=== PATIENT | female | born 1990 | race Caucasian/White ===

== ENCOUNTER 2024-03-17 07:06 | Inpatient (IN) | payer MEDICAID ==
[~2024-03-17 07:06] MED LIST: Bupivacaine 0.25% 10 ML SDV ONE
[2024-03-17] MEDS ORDERED: Nalbuphine 10 MG/1 ML Vial IVPUSH PRN (07:23)
[2024-03-17] MEDS ORDERED: Lidocaine 1% 50 ML MDV INJECT PRN (07:23)
[2024-03-17] MEDS ORDERED: Calcium Carbonate 500 MG Tab.Chew PO PRN (07:23)
[2024-03-17] MEDS ORDERED: Oxytocin/0.9 % Sodium Chloride 30 UNIT/500 ML BAG IV SCH (07:30)
[2024-03-17 08:11] LABS: BASOPHILS PERCENT AUTO 0.3 % (0.0-1.0); EOSINOPHILS ABSOLUTE AUTO 0.1 K/mm3 (0.0-0.4); EOSINOPHILS PERCENT AUTO 0.7 % (0.0-6.0); HEMATOCRIT 30.6 % (37.0-47.0); IMMATURE GRAN ABSOLUTE AUTO 0.06 K/mm3 (0.00-0.05); IMMATURE GRAN PERCENT AUTO 0.7 % (0.0-0.4); LYMPHOCYTES ABSOLUTE AUTO 2.2 K/mm3 (1.0-4.8); MEAN CORPUSCULAR HEMOGLOBIN 27.2 pg (28.0-32.0); MEAN CORPUSCULAR HGB CONC 32.7 g/dl (32.0-36.0); MEAN CORPUSCULAR VOLUME 83.4 fl (83.0-99.0); MEAN PLATELET VOLUME 11.9 fl (9.4-12.3); MONOCYTES ABSOLUTE AUTO 0.8 K/mm3 (0.0-0.8); NEUTROPHILS ABSOLUTE AUTO 5.5 K/mm3 (1.8-7.7); NEUTROPHILS PERCENT AUTO 64.3 % (41.0-71.0); PLATELET COUNT,PLT 172 K/mm3 (150-400); RED BLOOD CELL COUNT 3.67 M/mm3 (4.10-5.30); WHITE BLOOD CELL COUNT,WBC 8.59 K/mm3 (3.9-11.3)
[2024-03-17 08:30] LABS: CREATININE 0.7 mg/dL (0.55-1.02); EST CRCL DRUG DOSING (CG) 108.01 mL/min; URIC ACID 5.5 mg/dL (2.6-6.0)
[2024-03-17] MEDS: Lactated Ringers 1,000 ML IV SCH (10:08)
[2024-03-17] MEDS: Oxytocin/0.9 % Sodium Chloride 30 UNIT/500 ML BAG IV SCH (10:10)
[2024-03-17 10:17] LABS: CREATININE,URINE RAND 204.5 mg/dL (30.0-125.0); PROTEIN CREATININE RATIO,URINE 176.5 mg/g (0-149); PROTEIN,URINE RANDOM 36.1 mg/dL (0.0-11.8)
[2024-03-17] MEDS ORDERED: diphenhydrAMINE 50 MG/ML SDV IVPUSH PRN (15:27)
[2024-03-17] MEDS ORDERED: ePHEDrine 50 MG/ML SDV IVPUSH PRN (15:27)
[2024-03-17] MEDS: fentaNYL 100 MCG/2 ML SDV EPIDUR PRN (15:47)
[2024-03-17] MEDS: Bupivacaine/fentaNYL/NS 100 ML Bag EPIDUR PRN (15:48)
[2024-03-17] MEDS: Ondansetron 4 MG/2 ML SDV IVPUSH PRN (21:29)
[2024-03-17] MEDS ORDERED: Bisacodyl 10 MG Supp RECTAL PRN (23:22)
[2024-03-17] MEDS ORDERED: Magnesium Hydroxide 400 MG/5 ML Susp 30 ML Cup PO PRN (23:22)
[2024-03-17] MEDS ORDERED: Simethicone 80 MG Tab.Chew PO PRN (23:22)
[2024-03-17] MEDS ORDERED: Sennosides 8.6 MG Tab PO PRN (23:22)
[2024-03-18] MEDS: Ibuprofen 800 MG Tab PO SCH ×3 (01:34→18:07)
[2024-03-18] MEDS: Witch Hazel Medicated Pads 40/Jar TOP PRN (06:44)
[2024-03-18] MEDS: Benzocaine/Menthol 20%-0.5% Spray 78 GM Cannister TOP PRN (06:44)
[2024-03-18] MEDS: Ferrous Sulfate 324 MG Tab.EC PO SCH (06:53)
[2024-03-18] MEDS: Docusate Sodium 100 MG Cap PO PRN (06:53)
[2024-03-18] MEDS: Acetaminophen 325 MG Tab PO PRN (06:53)
== END 2024-03-19 11:00 | disposition home or self-care (01) | DRG 807 ==
LOC: JD.OBCHECK 07:06 → JD.OB 07:11 → JD.OBCHECK 07:12 → OBSVTOIN 22:49 → JD.OB 22:50
PROVIDERS: ADMIT Obstetrics & Gynecology; ATTEND Obstetrics & Gynecology
PROC: 10E0XZZ Delivery of Products of Conception, External Approach (ICD-10-PCS; principal; 2024-03-17)
PROC: 10907ZC Drainage of Amniotic Fluid, Therapeutic from Products of Conception, Via Natural or Artificial Opening (ICD-10-PCS; 2024-03-17)
PROC: 3E033VJ Introduction of Other Hormone into Peripheral Vein, Percutaneous Approach (ICD-10-PCS; 2024-03-17)
PROC: 3E0P7VZ Introduction of Hormone into Female Reproductive, Via Natural or Artificial Opening (ICD-10-PCS; 2024-03-17)
PROC: 0HQ9XZZ Repair Perineum Skin, External Approach (ICD-10-PCS; 2024-03-17)
PROC: 3E0R3BZ Introduction of Anesthetic Agent into Spinal Canal, Percutaneous Approach (ICD-10-PCS; 2024-03-17)
PROC: 00HU33Z Insertion of Infusion Device into Spinal Canal, Percutaneous Approach (ICD-10-PCS; 2024-03-17)
DX: O13.4 Gestational [pregnancy-induced] hypertension without significant proteinuria, complicating childbirth (principal); Z37.0 Single live birth; O70.0 First degree perineal laceration during delivery; O69.81X0 Labor and delivery complicated by cord around neck, without compression, not applicable or unspecified; O76 Abnormality in fetal heart rate and rhythm complicating labor and delivery; Z3A.39 39 weeks gestation of pregnancy; Z91.018 Allergy to other foods
CPT/HCPCS: 36415; 51702; 59025; 59409; 82565; 82570; 83615; 84156; 84450; 84460; 84520; 84550; 85025; 86592; 86850; 86900; 86901; A9270-GY; J0665; J2405; J3010; J3490; J7120; J7999

== ENCOUNTER 2024-05-01 11:35 | Emergency (ER) | payer MEDICAID ==
[2024-05-01] MEDS ORDERED: Sodium Chloride 0.9% 10 ML Syringe FLUSH PRN (12:07)
[2024-05-01 12:31] LABS: BASOPHILS ABSOLUTE AUTO 0.1 K/mm3 (0.0-0.2); BASOPHILS PERCENT AUTO 0.7 % (0.0-1.0); EOSINOPHILS ABSOLUTE AUTO 0.4 K/mm3 (0.0-0.4); EOSINOPHILS PERCENT AUTO 4.2 % (0.0-6.0); HEMATOCRIT 36.8 % (37.0-47.0); IMMATURE GRAN ABSOLUTE AUTO 0.02 K/mm3 (0.00-0.05); IMMATURE GRAN PERCENT AUTO 0.2 % (0.0-0.4); LYMPHOCYTES ABSOLUTE AUTO 2.9 K/mm3 (1.0-4.8); LYMPHOCYTES PERCENT AUTO 32.1 % (24.0-44.0); MEAN CORPUSCULAR HEMOGLOBIN 27.9 pg (28.0-32.0); MEAN CORPUSCULAR HGB CONC 33.4 g/dl (32.0-36.0); MEAN CORPUSCULAR VOLUME 83.4 fl (83.0-99.0); MEAN PLATELET VOLUME 10.5 fl (9.4-12.3); MONOCYTES ABSOLUTE AUTO 0.7 K/mm3 (0.0-0.8); MONOCYTES PERCENT AUTO 7.6 % (0.0-8.0); NEUTROPHILS ABSOLUTE AUTO 4.9 K/mm3 (1.8-7.7); NEUTROPHILS PERCENT AUTO 55.2 % (41.0-71.0); PLATELET COUNT,PLT 218 K/mm3 (150-400); RED BLOOD CELL COUNT 4.41 M/mm3 (4.10-5.30)
[2024-05-01 12:35] LABS: HEMOGLOBIN 12.3 gm/dl (12.0-16.0)
[2024-05-01 12:47] LABS: INR 0.94
[2024-05-01 12:48] LABS: PTT,PARTIAL THROMBOPLSTIN TIME 23.3 SECONDS (21.7-31.4)
[2024-05-01 12:56] LABS: A/G RATIO 0.9 (1-2); ALBUMIN 3.6 g/dl (3.4-5.0); ANION GAP 12.1 (5-15); BILIRUBIN TOTAL 0.4 mg/dL (0.2-1.0); BUN/CREATININE RATIO 21.1 (14-18); CALCIUM 9.6 mg/dL (8.5-10.1); CREATININE 0.9 mg/dL (0.55-1.02); EST CRCL DRUG DOSING (CG) 84.01 mL/min; POTASSIUM,K 4.1 mEq/L (3.5-5.1); PROTEIN TOTAL,TP 7.5 g/dl (6.4-8.2)
== END 2024-05-01 14:35 | disposition home or self-care (01) ==
LOC: JD.ED 11:35
DX: N93.9 Abnormal uterine and vaginal bleeding, unspecified (principal); I10 Essential (primary) hypertension; E66.9 Obesity, unspecified; Z86.16 Personal history of COVID-19; Z87.891 Personal history of nicotine dependence; Z79.899 Other long term (current) drug therapy; Z91.018 Allergy to other foods; Z68.31 Body mass index [BMI] 31.0-31.9, adult
CPT/HCPCS: 36415; 76830; 80053; 84702; 85025; 85610; 85730; 86900; 86901; 99284; A9270